=== PATIENT | female | born 1960 | race Caucasian/White ===

== ENCOUNTER → 2020-04-18 15:26 | Outpatient (BNVA) | payer OTHER, SELFPAY | PROVIDERS: PCP Family Medicine; Referring Provider Family Medicine; Visit Provider Hospitalist | DX: Z76.89 Persons encountering health services in other specified circumstances (principal) ==

== ENCOUNTER 2020-07-25 12:39 | Outpatient (REF) | payer OTHER, SELFPAY ==
[2020-07-25 14:40] LABS: MANUAL DIFF FLAG NO
[2020-07-25 14:46] LABS: Basophils Percent Auto 0.2 % (0-2); Eosinophils Percent Auto 0.6 % (0-4); Hemoglobin 14.5 g/dl (12.0-16.0); Imm Gran Abs Auto 0.03 X10*3/uL (0.00-0.03); Imm Gran Pct Auto 0.5 % (0.0-0.4); Lymphocytes Absolute Auto 1.7 X10*3/uL (1.2-4.9); Lymphocytes Percent Auto 26.4 % (20-40); Mean Corpuscular HGB Conc 34.5 g/dl (31.0-35.0); Mean Corpuscular Hemoglobin 33.9 pg (27.0-33.0); Mean Corpuscular Volume 98.1 fL (80-98); Monocytes Absolute Auto 0.5 X10*3/uL (0.1-1.2); Monocytes Percent Auto 8.1 % (2-11); Neutrophils Absolute Auto 4.1 X10*3/uL (2.0-8.3); Neutrophils Percent Auto 64.2 % (45-73); Platelet Count 178 X10*3/uL (160-400); Red Blood Count 4.28 X10*6/uL (4.20-5.50); Red Cell Distribution Width 12.8 % (11.0-16.0); White Blood Count 6.4 X10*3/uL (4.8-10.8)
[2020-07-25 15:15] LABS: Alanine Aminotransferase 91 U/L (0-31); Albumin Level 4.3 g/dL (3.5-5.0); Alkaline Phosphatase 85 U/L (39-117); Anion Gap 19 (12-20); Aspartate Amino Transferase 84 U/L (5-31); Bilirubin Total 1.8 mg/dL (0.0-1.0); Blood Urea Nitrogen 12 mg/dL (9-16); Calcium 8.9 mg/dL (8.4-10.2); Carbon Dioxide 23 mmol/L (22-29); Chloride 100 mmol/L (96-108); Estimated Glomerular Filt Rate 53; Glucose Random 90 mg/dL (60-115); Potassium 3.6 mmol/L (3.3-5.1); Sodium 138 mmol/L (135-145); Total Protein 6.7 g/dL (6.5-8.0)
[2020-07-25 15:25] LABS: Thyroid Stimulating Hormone 2.18 uIU/mL (0.32-4.0)
[2020-07-25 15:26] LABS: Erythrocyte Sedimentation Rate 5 MM/HR (0-20)
[2020-07-26 09:16] LABS: Lyme Abs Screen <0.90 index
== END 2020-07-25 12:40 | disposition home or self-care (01) ==
LOC: HO.10HDL 12:39
PROVIDERS: Visit Provider Family Medicine
DX: R53.83 Other fatigue (principal); R11.0 Nausea; L30.9 Dermatitis, unspecified
CPT/HCPCS: 36415; 80053; 84443; 85025; 85652; 86618

== ENCOUNTER 2020-08-29 09:40 | Outpatient (REF) | payer OTHER, SELFPAY ==
[2020-08-29 10:42] LABS: Appearance Urine HAZY; Color Urine AMBER; Glucose Urine UA NEG (NEG); Leukocyte Esterase Urine NEG (NEG); Nitrite Urine NEG (NEG); Specific Gravity - Urine >= 1.030 (1.005-1.025); Urine Blood NEG (NEG); Urine Ketones NEG (NEG); Urine Protein NEG (NEG-TRACE)
[2020-08-29 11:09] LABS: Alanine Aminotransferase 61 U/L (0-31); Albumin Level 4.2 g/dL (3.5-5.0); Alkaline Phosphatase 91 U/L (39-117); Aspartate Amino Transferase 84 U/L (5-31); Bilirubin Direct 0.5 mg/dL (0.0-0.5); Bilirubin Total 1.3 mg/dL (0.0-1.0); Total Protein 6.6 g/dL (6.5-8.0)
== END 2020-08-29 09:41 | disposition home or self-care (01) ==
LOC: HO.LAB 09:40
PROVIDERS: PCP Family Medicine; Visit Provider Family Medicine
DX: R31.9 Hematuria, unspecified (principal); R79.89 Other specified abnormal findings of blood chemistry
CPT/HCPCS: 36415; 80076; 81003

== ENCOUNTER 2020-12-12 09:50 | Outpatient (REF) | payer OTHER, SELFPAY ==
--- NOTE | ~2020-12-12 | FL_ITS ---
EXAMINATION: FL BARIUM SWALLOW CLINICAL INFORMATION: Dysphagia. History of bariatric surgery. COMPARISON: Previous upper GI August 2018 TECHNIQUE: Barium swallow examination is performed using fluoroscopic evaluation in addition to multiple fluoroscopic spot views. The patient is imaged both upright and prone and using both thick and thin sulfate along with effervescent granules. Patient was also administered a barium tablet. Fluoroscopy time: 1.1 minutes DAP: 13 Gycm2 Images: 40 FINDINGS: The swallowing mechanism is normal. No aspiration or penetration is seen. There is slight mass effect on the posterior cervical esophagus from vertebral body bony osteophyte. Esophageal motility is normal. The barium tablet passed freely into the stomach. There is mild gastroesophageal reflux. No hernia, mass or stricture is seen. FL/FL barium swallow IMPRESSION: Slight posterior impression on the posterior cervical esophagus from vertebral body bony osteophyte. Mild gastroesophageal reflux.
[2020-12-12 10:40] LABS: MANUAL DIFF FLAG NO
[2020-12-12 10:45] LABS: Basophils Percent Auto 0.5 % (0-2); Eosinophils Absolute Auto 0.1 X10*3/uL (0.0-0.4); Eosinophils Percent Auto 0.9 % (0-4); Hematocrit 42.4 % (37-47); Hemoglobin 14.2 g/dl (12.0-16.0); Imm Gran Abs Auto 0.02 X10*3/uL (0.00-0.03); Imm Gran Pct Auto 0.3 % (0.0-0.4); Lymphocytes Absolute Auto 1.6 X10*3/uL (1.2-4.9); Lymphocytes Percent Auto 23.6 % (20-40); Mean Corpuscular HGB Conc 33.5 g/dl (31.0-35.0); Mean Corpuscular Hemoglobin 33.9 pg (27.0-33.0); Mean Corpuscular Volume 101.2 fL (80-98); Mean Platelet Volume 10.4 fL (9.4-12.3); Monocytes Absolute Auto 0.7 X10*3/uL (0.1-1.2); Monocytes Percent Auto 10.9 % (2-11); Neutrophils Absolute Auto 4.2 X10*3/uL (2.0-8.3); Neutrophils Percent Auto 63.8 % (45-73); Platelet Count 267 X10*3/uL (160-400); Red Blood Count 4.19 X10*6/uL (4.20-5.50); Red Cell Distribution Width 12.3 % (11.0-16.0); White Blood Count 6.6 X10*3/uL (4.8-10.8)
[2020-12-12 11:11] LABS: Anion Gap 15 (12-20); Blood Urea Nitrogen 10 mg/dL (9-16); Calcium 9.4 mg/dL (8.4-10.2); Carbon Dioxide 23 mmol/L (22-29); Chloride 109 mmol/L (96-108); Estimated Glomerular Filt Rate > 60; Glucose Random 96 mg/dL (60-115); Potassium 4.6 mmol/L (3.3-5.1); Sodium 142 mmol/L (135-145)
== END 2020-12-12 09:51 | disposition home or self-care (01) ==
LOC: HO.XRAY 09:50
PROVIDERS: PCP Family Medicine; Visit Provider Family Medicine
DX: R10.13 Epigastric pain (principal); R11.2 Nausea with vomiting, unspecified; R53.1 Weakness; J64 Unspecified pneumoconiosis; R06.00 Dyspnea, unspecified
CPT/HCPCS: 36415; 74220; 80048; 85025

== ENCOUNTER 2021-01-05 07:56 | Outpatient (REF) | payer OTHER, SELFPAY ==
--- NOTE | 2021-01-05 15:04 | PFT_ITS ---
FLOWS: FEV1 109% of predicted at 2.73 L. FVC 101% of predicted at 3.24 L. FEV1 to FVC ratio of 0.84. No bronchodilator response. LUNG VOLUMES: Total lung capacity 97% of predicted at 4.76 L. Residual volume 80% of predicted at 1.55 L. Slow vital capacity 107% of predicted at 3.21 L. Expiratory reserve volume 94% of predicted at 0.79 L. Diffusion capacity is mildly decreased. In comparison to pulmonary function test performed in July of 2019, FEV1 has increased by 0.17 L; FVC, RV, and ERV have been without significant changes; total lung capacity has increased by 0.34 L; slow vital capacity has increased by 0.27 L; diffusion capacity has increased by 0.30 mL/minute per mmHg. IMPRESSION: No obstructive or restrictive ventilatory defect. No bronchodilator response. Isolated defect in diffusion capacity suggests underlying pulmonary, vascular or parenchymal disease. MD SNEHAL Dean/MODL / [id number] MTDD
== END 2021-01-05 07:57 | disposition home or self-care (01) ==
LOC: HO.RESP 07:56
PROVIDERS: PCP Family Medicine; Visit Provider Hospitalist
DX: J64 Unspecified pneumoconiosis (principal)
CPT/HCPCS: 94060; 94727; 94729

== ENCOUNTER → 2021-01-25 13:11 | Outpatient (BNVA) | payer OTHER, SELFPAY | PROVIDERS: PCP Family Medicine; Visit Provider Hospitalist | DX: J64 Unspecified pneumoconiosis (principal); J45.909 Unspecified asthma, uncomplicated ==

== ENCOUNTER 2021-02-09 08:27 | Day surgery (SDC) | payer OTHER, SELFPAY ==
[2021-02-01 16:49] VITALS: BMI 37.0
--- NOTE | 2021-02-08 08:43 | HO.ANESPROP2 ---
Documented by User: Nalini Castillo NP 02/08/21 08:45 HPI - Anesthesia Eval Consult details Narrative: 60yo F for Upper Endoscopy PMFSH Active Problems Active Problems: All Active Problems (Updated 02/01/21 @ 16:49 by Janine Franklin RN) Dyspnea (Acute) Pneumonitis (Acute) Sick building syndrome (Acute) Pneumoconiosis (Acute) Past Medical History Medical History (Updated 02/01/21 @ 16:49 by Janine Franklin RN) Anxiety Dyspnea Esophageal reflux History of tachycardia Pneumoconiosis Pneumonitis Sick building syndrome Surgical History Surgical History (Updated 02/01/21 @ 16:47 by Janine Franklin RN) History of bronchoscopy History of endometrial ablation History of sleeve gastrectomy Hx of section Hx of colonoscopy Hx of endoscopy Social History Social History (Updated 12/12/20 @ 14:14 by EULA Daniels) Are you a primary progressive care manager to a significant other at home: No Do you presently have visiting nurse or other home services: No Patient Tobacco Use Status: Never used Tobacco Are you DNR?: No Advance Directives: No Advance Directives Information Provided: No Advance Directives on File: No Recently lost weight without trying: No Eating poorly because of decreased appetite: No Nutrition Risks: No Nutritional Risk Patient : No Meds Allergies Allergy/AdvReac Type Severity Reaction Status Date / Time No Known Allergies Allergy Verified 02/01/21 16:38 Home Medications Medication Instructions Recorded Confirmed Last Taken Type albuterol sulfate 90 mcg/actuation 2 puff INHALATION Q6H PRN 04/18/20 02/01/21 Unknown History aerosol inhaler atenolol 25 mg tablet 25 mg PO BID 04/18/20 02/01/21 Unknown History esomeprazole magnesium 20 mg 20 mg PO DAILY 04/18/20 02/01/21 Unknown History capsule,delayed release (Nexium 24HR) trazodone 50 mg tablet 50 mg PO BEDTIME PRN 04/18/20 02/01/21 Unknown History hydroxyzine HCl 25 mg tablet 25 mg PO BID PRN 01/25/21 02/01/21 Unknown History famotidine 20 mg tablet 20 mg PO BEDTIME 02/01/21 02/01/21 Unknown History Exam Exam Date and Time: February 08, 2021 0843 Height,Weight and Vital Signs: Height 5 ft 4 in Weight 97.976 kg Pertinent Lab Results Pertinent Lab Results: Laboratory Tests 12/12/20 12/12/20 10:20 10:20 WBC 6.6 Hgb 14.2 Hct 42.4 Plt Count 267 D Sodium 142 Potassium 4.6 D Chloride 109 H Carbon Dioxide 23 BUN 10 Creatinine 0.84 Narrative Narrative: PFT 12/2020 IMPRESSION:? No obstructive or restrictive ventilatory defect.? No bronchodilator response. Isolated defect in diffusion capacity suggests underlying pulmonary, vascular or parenchymal disease. Assessment and Plan Assessment Anesthesia Assessment: Chart Reviewed Documented by User: Gerri Duong MD 02/09/21 09:34 PMF Past Medical History Medical History (Updated 02/01/21 @ 16:49 by Janine Franklin RN) Anxiety Dyspnea Esophageal reflux History of tachycardia Pneumoconiosis Pneumonitis Sick building syndrome Family History Family history of problems with anesthesia: No Surgical History Surgical History (Updated 02/01/21 @ 16:47 by Janine Franklin RN) History of bronchoscopy History of endometrial ablation History of sleeve gastrectomy Hx of section Hx of colonoscopy Hx of endoscopy History of Problems with Anesthesia: No Social History Social History (Updated 12/12/20 @ 14:14 by EULA Daniels) Are you a primary progressive care manager to a significant other at home: No Do you presently have visiting nurse or other home services: No Patient Tobacco Use Status: Never used Tobacco Are you DNR?: No Advance Directives: No Advance Directives Information Provided: No Advance Directives on File: No Recently lost weight without trying: No Eating poorly because of decreased appetite: No Nutrition Risks: No Nutritional Risk Patient : No Meds Allergies Allergy/AdvReac Type Severity Reaction Status Date / Time No Known Allergies Allergy Verified 02/01/21 16:38 Home Medications Medication Instructions Recorded Confirmed Last Taken Type albuterol sulfate 90 mcg/actuation 2 puff INHALATION Q6H PRN 04/18/20 02/01/21 Unknown History aerosol inhaler atenolol 25 mg tablet 25 mg PO BID 04/18/20 02/01/21 Unknown History esomeprazole magnesium 20 mg 20 mg PO DAILY 04/18/20 02/01/21 Unknown History capsule,delayed release (Nexium 24HR) trazodone 50 mg tablet 50 mg PO BEDTIME PRN 04/18/20 02/01/21 Unknown History hydroxyzine HCl 25 mg tablet 25 mg PO BID PRN 01/25/21 02/01/21 Unknown History famotidine 20 mg tablet 20 mg PO BEDTIME 02/01/21 02/01/21 Unknown History Exam Airway Mallampati Class: II TM Dist: >3cm Neck ROM: Full Heart: rrr Lungs: cta Assessment and Plan Assessment Anesthesia Assessment: Anesthesia Plan Discussed Final Anesthetic Review Family History of Problems with Anesthesia: No History of Problems with Anesthesia: No NPO: Yes ASA Class: III Final Preanesthetic Review: No Changes in Pt Med Stat, Meds/Allgs Chart Reviewed and Consent Obtained/Reviewed Patient Risk: Intermediate Procedure Risk: Intermediate Anesthetic Plan Anesthetic Plan: MAC: Disposition: Standard PACU
[2021-02-09 08:56] VITALS: BP 144/83; PULSE 98; RESP 18; TEMP 36.6; O2SAT 95
[2021-02-09] MEDS: Lactated Ringers 1,000 ML 100 ML IVCONT (09:03)
--- NOTE | 2021-02-09 09:31 | MHC.SHP ---
Pre-Procedural Eval Section A Date of Service: 02/09/21 The patient is an INPATIENT: No Changes since office visit: No Cold of Flu in the past 2 weeks, No New Medical Problems, No Changes in Medication and No Patient answered all questions The History & Physical has been completed within 30 days and I have reviewed it.: Yes Section B Chief Complaint: reflux disease Allergies: Allergies Allergy/AdvReac Type Severity Reaction Status Date / Time No Known Allergies Allergy Verified 02/01/21 16:38 Plan I have reviewed the history and physical and performed a pertinent physical examination on my patient. No changes have occurred unless specified.
[2021-02-09 10:05] VITALS: BP 149/78; PULSE 125; RESP 16; TEMP 36.4; O2SAT 99
--- NOTE | 2021-02-09 10:08 | P.BOP_ITS ---
Brief Operative Note Date of Service: 02/09/21 Pre-op diagnosis: GERD Post-op diagnosis: same (EG junction mass) Procedure: upper endoscopy Surgeon: Jos Nevarez Anesthesia: MAC Was an Aluminum Boat Inspector used for this Procedure?: No Estimated blood loss (mL): 5 Pathology: other (bxs antrum, egj mass, egj) Condition: stable Disposition: PACU
[2021-02-09 10:20] VITALS: BP 150/69; PULSE 111; RESP 17; TEMP 36.4; O2SAT 98
--- NOTE | 2021-02-14 09:15 | OP_ITS ---
SURGEON: Jos Nevarez MD INDICATIONS: Gastroesophageal reflux disease. PREOPERATIVE DIAGNOSIS: POSTOPERATIVE DIAGNOSIS: PROCEDURE PERFORMED: Upper endoscopy with biopsy. ESTIMATED BLOOD LOSS: COMPLICATIONS: ANESTHESIA: ASSISTANTS: SPECIMENS: MEDICATIONS: Monitored anesthesia care. DESCRIPTION OF PROCEDURE: History and physical was performed. The risks and benefits of the procedure were explained to the patient. Informed consent was obtained. The patient was placed in the left lateral decubitus position. The Olympus video gastroscope was introduced into the esophagus, stomach, and duodenum. Examination was performed. The scope was removed. She tolerated the procedure well and was taken to recovery area in stable condition. FINDINGS: Esophagus: The esophagus showed an irregular EG junction. There was no esophagitis. Biopsies were obtained from the EG junction. Stomach: In the proximal stomach, approximately 1-2 cm below the EG junction was a 2.5 cm polypoid lesion, which was ulcerated and friable. This prolapsed into the distal esophagus with retching and was biopsied. The base of the lesion was difficult to identify because of the patient's retching. There were multiple benign-appearing gastric polyps in the body of the stomach consistent with hyperplastic or fundic gland polyps measuring up to 10 mm in diameter. Antral biopsies were obtained. Duodenum: The bulb and second portion were normal. IMPRESSION: 1. Gastroesophageal reflux disease. 2. Polypoid esophageal mass lesion as above. RECOMMENDATIONS: 1. Follow up the biopsy results. 2. Continue proton pump inhibitor. MD MARK Ramos/CHENTEL / [id number]
== END 2021-02-09 10:50 | disposition home or self-care (01) ==
PROVIDERS: PCP Family Medicine; Visit Provider Internal Medicine Gastroenterology
PROC: 0DJ08ZZ Inspection of Upper Intestinal Tract, Via Natural or Artificial Opening Endoscopic (ICD-10-PCS; CPT 43235; principal; 2021-02-09 09:40)
DX: K21.9 Gastro-esophageal reflux disease without esophagitis (principal); K22.8 Other specified diseases of esophagus; K31.7 Polyp of stomach and duodenum; Z79.899 Other long term (current) drug therapy
CPT/HCPCS: 43239; 88305; 88342

== ENCOUNTER → 2021-05-08 06:59 | Day surgery (SDC) | payer OTHER, SELFPAY ==
[2021-05-01 20:00] VITALS: BMI 32.5
--- NOTE | 2021-05-07 08:56 | P.CONAN_ITS ---
HPI - Anesthesia Eval Consult details Narrative: Cx'd DOS d/t recent fall with facial trauma. Sent to ED 60yo F for Upper Endoscopy s/p EGD 01/2021 with MAC - Per Dr Nevarez, requires GA for this EGD REPLACED BY [facility] Active Problems Active Problems: All Active Problems (Updated 05/01/21 @ 19:57 by Becky Lovell, RADHA) Dyspnea (Acute) Pneumonitis (Acute) Sick building syndrome (Acute) Pneumoconiosis (Acute) Past Medical History Medical History Anxiety Dyspnea Esophageal reflux Heart palpitations History of tachycardia Pneumoconiosis Pneumonitis Sick building syndrome Sleep apnea Family History Family history of problems with anesthesia: No Surgical History Surgical History History of bronchoscopy History of endometrial ablation History of sleeve gastrectomy Hx of section Hx of colonoscopy Hx of endoscopy History of Problems with Anesthesia: No Social History Social History Are you a primary care program resident to a significant other at home: No Do you presently have visiting nurse or other home services: No Alcohol intake: current Alcohol intake frequency: a few times a week Patient Tobacco Use Status: Never used Tobacco Meds Allergies Allergy/AdvReac Type Severity Reaction Status Date / Time No Known Allergies Allergy Verified 05/15/21 10:22 Home Medications Medication Instructions Recorded Confirmed Last Taken Type albuterol sulfate 90 mcg/actuation 2 puff INHALATION Q6H PRN 04/18/20 05/01/21 Unknown History aerosol inhaler atenolol 25 mg tablet 25 mg PO BID 04/18/20 05/01/21 Unknown History esomeprazole magnesium 20 mg 20 mg PO DAILY 04/18/20 05/01/21 Unknown History capsule,delayed release (Nexium 24HR) trazodone 50 mg tablet 50 mg PO BEDTIME PRN 04/18/20 05/01/21 Unknown History famotidine 20 mg tablet 20 mg PO BEDTIME 02/01/21 05/01/21 Unknown History Exam Exam Date and Time: May 07, 2021 0856 Height,Weight and Vital Signs: Height 5 ft 4 in Weight 86.183 kg Narrative Narrative: PFT 12/2020 IMPRESSION:? No obstructive or restrictive ventilatory defect.? No bronchodilator response. Isolated defect in diffusion capacity suggests underlying pulmonary, vascular or parenchymal disease. Assessment and Plan Assessment Anesthesia Assessment: Chart Reviewed Final Anesthetic Review Family History of Problems with Anesthesia: No History of Problems with Anesthesia: No
== END ==
PROVIDERS: PCP Family Medicine; Visit Provider Internal Medicine Gastroenterology
DX: K31.9 Disease of stomach and duodenum, unspecified (principal); Z53.09 Procedure and treatment not carried out because of other contraindication; K21.9 Gastro-esophageal reflux disease without esophagitis; Z79.899 Other long term (current) drug therapy

== ENCOUNTER 2021-05-08 07:32 | Emergency (ER) | payer OTHER, SELFPAY ==
--- NOTE | ~2021-05-08 | CT_ITS ---
EXAMINATION: CT HEAD WITHOUT CONTRAST CT FACIAL BONES WITHOUT CONTRAST CT HEAD WITHOUT CONTRAST: CLINICAL INFORMATION: Fall. Pain. COMPARISON: Previous brain MRI October 2006 TECHNIQUE: Axial images through the brain without contrast. Sagittal and coronal reconstructions on the technologist workstation were performed. Patient dose: 745 mGy-cm. FINDINGS: There is no evidence of an extra-axial collection. There is no evidence of intra-axial or extra-axial hemorrhage. The ventricles and extra-axial CSF spaces are appropriate. Walker-white matter differentiation is normal. No mass or mass effect is seen. Review of bone windows is normal. There is soft tissue opacification of the right maxillary sinus. Paranasal sinuses, mastoid air cells and middle ears are otherwise clear. CT/CT facial bones wo con IMPRESSION: No acute intracranial findings. Soft tissue opacification of the right maxillary sinus. CT FACIAL BONES WITHOUT CONTRAST: CLINICAL INFORMATION: Trauma. Pain. COMPARISON: None. TECHNIQUE: Axial images through the facial bones without contrast. Sagittal and coronal reconstructions on the technologist workstation were performed. Patient dose: 327 mGy-cm. FINDINGS: There is air in the soft tissues and stranding of the fat along the anterior midline and right side of the mandible. No fracture or dislocation is seen. There is soft tissue opacification of the right maxillary sinus and right ostiomeatal complex. The remainder of the paranasal sinuses are clear. The mastoid air cells and middle ears are clear. The temporomandibular joints are normal. The orbits are normal. There may be a right nondisplaced nasal bone fracture. It does not appear acute. IMPRESSION: Air in the soft tissues and stranding of the fat along the anterior midline and right side of the mandible. No fracture or dislocation. Soft tissue opacification of the right maxillary sinus and ostiomeatal complex probably related to inflammatory changes as no acute facial bone fracture is seen.
--- NOTE | ~2021-05-08 | CT_ITS ---
EXAMINATION: CT CERVICAL SPINE WITHOUT CONTRAST CLINICAL INFORMATION: Fall. Pain. COMPARISON: None TECHNIQUE: Axial images through the cervical spine without contrast. Sagittal and coronal reconstructions on the technologist workstation were performed. This CT examination was performed using dose optimization techniques as appropriate, variously including the following: *Automated exposure control *Adjustment of mA and/or kV according to patient size (this includes techniques or standardized protocols for targeted exams where dose is matched to indication/reason for exam; i.e. extremities or head) *Use of iterative reconstruction technique DLP: 357 mGy-cm FINDINGS: Bone alignment is normal. No fracture or dislocation is seen. There is degenerative spondylosis at C5-6, C6-C7 and C7-T1. There is disc space narrowing at C6-C7. There is bilateral facet arthritis. There are degenerative changes at the C1-C2 articulation. Prevertebral soft tissues are normal. CT/CT cervical spine wo con IMPRESSION: Degenerative changes. No fracture or dislocation seen. Fleischner guidelines were followed.
--- NOTE | 2021-05-08 07:46 | ED_ITS ---
HPI - Fall General Chief Complaint: Fall Stated Complaint: FALL Time Seen by Provider: 05/08/21 07:45 Source: patient and family Mode of arrival: ambulatory Limitations: no limitations History of Present Illness MD complaint: fall Onset (ago): hour(s) (22) Fall from: standing and down stairs (#) (6) Fall witnessed: no Place fall occurred: home Loss of consciousness: none Prolonged down time: no Symptoms prior to fall: none Context: tripped/slipped Location of injury: head, face and mouth Severity: moderate Quality: aching Associated symptoms (after fall): other (noted she went to have a procedure today to remove mass from esophagus and they saw her face and couldn't do it. She is not on oral anticoagulation) Related Data Home Medications Medication Instructions Recorded Confirmed albuterol sulfate 90 mcg/actuation 2 puff INHALATION Q6H PRN 04/18/20 05/01/21 aerosol inhaler atenolol 25 mg tablet 25 mg PO BID 04/18/20 05/01/21 esomeprazole magnesium 20 mg 20 mg PO DAILY 04/18/20 05/01/21 capsule,delayed release (Nexium 24HR) trazodone 50 mg tablet 50 mg PO BEDTIME PRN 04/18/20 05/01/21 famotidine 20 mg tablet 20 mg PO BEDTIME 02/01/21 05/01/21 Previous Rx's Medication Instructions Recorded Wixela Inhub 250 mcg-50 mcg/dose 1 inh INHALATION BID 30 Days #60 01/26/21 powder for inhalation (fluticasone ea NS propion-salmeterol) Dulera 200 mcg-5 mcg/actuation HFA 2 puff INHALATION Q12H 30 Days #13 01/29/21 aerosol inhaler g NS (mometasone-formoterol) amoxicillin 875 mg-potassium 1 tab PO BID #14 tab 05/08/21 clavulanate 125 mg tablet (Augmentin) Allergies Allergy/AdvReac Type Severity Reaction Status Date / Time No Known Allergies Allergy Verified 05/08/21 07:54 Review of Systems Review of Systems: Constitutional : No Fever, No Chills ENT/Mouth : No Ear Pain, No Hoarseness, No sore throat, pos mouth pain Eyes: No Eye Pain, No Swelling, No Redness, No Foreign Body Cardiovascular : No Chest Pain, No SOB Respiratory : No Cough, No Dyspnea Gastrointestinal : No Nausea, No Vomiting, No Diarrhea, No abdominal Pain Genitourinary : No Dysuria, No Hematuria Musculoskeletal : no joint pain, No Myalgias, No Joint Swelling Skin : No Skin lacerations, No rash Neuro : No Weakness, No Numbness, No Loss of Consciousness, No Dizziness, No Headache, pos head injury Psych : No Anxiety/Panic, No Depression Heme/Lymph: no easy bruising, no Lymphadenopathy Endocrine : No Polyuria, No Polydipsia All other systems reviewed and are negative [facility] Past Medical History Source: old records reviewed Medical History Anxiety Dyspnea Esophageal reflux Heart palpitations History of tachycardia Pneumoconiosis Pneumonitis Sick building syndrome Sleep apnea Surgical History History of bronchoscopy History of endometrial ablation History of sleeve gastrectomy Hx of section Hx of colonoscopy Hx of endoscopy Social History Social History Are you a primary healthcare management consultant to a significant other at home: No Do you presently have visiting nurse or other home services: No Alcohol intake: current Alcohol intake frequency: a few times a week Patient Tobacco Use Status: Never used Tobacco Physical Exam Vital Signs: Vital Signs: Last Vital Signs Temp 98.9 F 05/08/21 07:54 Pulse 77 05/08/21 10:00 Resp 18 05/08/21 10:00 BP 160/66 H 05/08/21 10:00 Pulse Ox 100 05/08/21 10:00 BMI result Body Mass Index 33.5 Appearance: Alert. Oriented X3. No acute distress. Eyes: Pupils equal, round and reactive to light. ENT: Contusions noted on both periorbital areas, forehead, bridge of nose, has hematoma between gingiva and lower lip but able to fully open jaw, no valadez sign, no nasal septal hematoma Neck: Normal inspection. Neck supple. CVS: Normal heart rate and rhythm. Pulses normal. Chest: no ttp Respiratory: No respiratory distress. Breath sounds normal. Abdomen: Soft and nontender. Back: no ttp Skin: Skin warm and dry. Normal skin color. Normal skin turgor. Extremities: No lower extremity edema. superficial abrasions and bruising to bilateral patellas but full ROM Neuro: Oriented X 3. No motor deficit. No sensory deficit. Course Course Course Narrative: repeat calls to radiology for delayed reads prelim from structural iron erector no finals done - patient and spouse want to leave no ICH, no cervical spine fracture, no facial bone fracture there is soft tissue injury to L maxillary and anterior mandible area but no fractures MDM - Fall MDM Narrative Medical decision making narrative: 60 yo female here not on oral anti coagulation comes in after carrying a crock pot up her stairs then reports tripping and fall backwards down 6 steps somehow she has isolated anterior head and facial trauma without LOC, no other injuries reported - she is GCS 15. At this time CT head/cspine/facial bones ordered. She only came today about 1 day later because she showed up to short stay surgery for pre -op and they refused her for surgery given the recent head trauma. Lab Data Labs: Lab Results 05/08/21 Range/Units 08:02 COVID-19 (RERE) Negative (Negative) COVID-19 Clin Com See Note Discharge Plan Discharge Clinical Impression: Hematoma, Opacification of right maxillary sinus Head injury Qualifiers: Encounter type: initial encounter Qualified Code(s): S09.90XA - Unspecified injury of head, initial encounter Contusion of face Qualifiers: Encounter type: initial encounter Qualified Code(s): S00.83XA - Contusion of other part of head, initial encounter Patient Disposition: Home, Self-Care Instructions: Head Injury (ED), Contusion in Adults (ED), Hematoma (ED), Facial Contusion (ED) Additional Instructions: return to ED for any worsening symptoms or concerns no nose blowing for 7 days you left prior to final reads no intracranial hemorrhage, no facial bone fractures, no cervical spine fractures found soft tissue injuries found Prescriptions: New amoxicillin-pot clavulanate [Augmentin] 875-125 mg tablet 1 tab PO BID Qty: 14 RF: 0 No Action fluticasone propion-salmeterol [Wixela Inhub] 250-50 mcg/dose blister with device 1 inh inhalation BID 30 Days Qty: 60 RF: 11 Dulera 200-5 mcg/actuation HFA aerosol inhaler 2 puff inhalation Q12H 30 Days Qty: 13 RF: 11 famotidine 20 mg Tablet 20 mg PO BEDTIME RF: 0 albuterol sulfate 90 mcg/actuation HFA aerosol inhaler 2 puff inhalation Q6H PRN (Reason: Wheezing) RF: 0 trazodone 50 mg tablet 50 mg PO BEDTIME PRN (Reason: Sleep) RF: 0 atenolol 25 mg tablet 25 mg PO BID RF: 0 esomeprazole magnesium [Nexium 24HR] 20 mg capsule,delayed release(DR/EC) 20 mg PO DAILY RF: 0 Interventions: ED Discharge Assessment Last Done: 05/08/21 11:22 Discharge Date/Time: 05/08/21 11:24
[2021-05-08 07:54] VITALS: BP 135/77; PULSE 70; RESP 18; TEMP 37.2; O2SAT 97; BMI 33.5
[2021-05-08 08:26] LABS: COVID-19 Test Negative (Negative); IDNOW Serial# 9DD0AD1C
--- NOTE | 2021-05-08 09:38 | PC.NURSE ---
pt offered pain medication and ice. declines.
[2021-05-08 10:00] VITALS: BP 160/66; PULSE 77; RESP 18; O2SAT 100
--- NOTE | 2021-05-08 11:20 | PC.NURSE ---
CONTINUE TO AWAIT CT OFFICIAL READ PT NOT WANTING TO STAY. CONTACTED RADIOLOGY ENVIRONMENTAL SERVICES MANAGER DUE TO LONG WAIT TIMES FOR REPORT PRELIM READ GIVEN TO DR MORGAN. PT AWAKE, ALERT AND ORIENTED X 3. SKIN WARM AND DRY. RESP UNLABORED. DENIES N/V. NO ACUTE DISTRESS NOTED.
== END 2021-05-08 11:24 | disposition home or self-care (01) ==
PROVIDERS: Emergency Provider Emergency Medicine; PCP Family Medicine
DX: S09.90XA Unspecified injury of head, initial encounter (principal); S00.83XA Contusion of other part of head, initial encounter; S00.93XA Contusion of unspecified part of head, initial encounter; G44.309 Post-traumatic headache, unspecified, not intractable; W10.9XXA Fall (on) (from) unspecified stairs and steps, initial encounter; Y93.9 Activity, unspecified; Y92.9 Unspecified place or not applicable; Y99.9 Unspecified external cause status; Z20.822 Contact with and (suspected) exposure to COVID-19; Z79.899 Other long term (current) drug therapy
CPT/HCPCS: 36415; 70450; 70486; 72125; 87635; 99284

== ENCOUNTER 2021-05-15 13:27 | Outpatient (REF) | payer OTHER, SELFPAY ==
--- NOTE | ~2021-05-15 | XR_ITS ---
EXAMINATION: XR KNEE, LEFT CLINICAL INFORMATION: Fall from stairs. COMPARISON: None TECHNIQUE: Four views of the left knee. FINDINGS: The tricompartment joint space is maintained normal. There is mild periarticular spurring medial compartment. There is no visible acute fracture, dislocation or bony erosive changes. The soft tissues are normal. XR/XR knee LT 4V IMPRESSION: Degenerative spurring medial compartment. No visible acute fracture or dislocation seen.
--- NOTE | ~2021-05-15 | XR_ITS ---
EXAMINATION: XR KNEE, RIGHT CLINICAL INFORMATION: Pain right knee COMPARISON: None TECHNIQUE: Four views of the right knee. FINDINGS: There is mild reduction in medial compartment joint space. There is mild periarticular spurring lateral compartment. There are no loose bodies, joint effusion or bony erosive changes. XR/XR knee RT 4V IMPRESSION: Mild degenerative changes medial compartment. No acute fracture or dislocation seen.
== END 2021-05-15 13:28 | disposition home or self-care (01) ==
LOC: HO.XRAY 13:27
PROVIDERS: PCP Family Medicine; Visit Provider Hospitalist
DX: M25.561 Pain in right knee (principal); M25.562 Pain in left knee; W10.8XXD Fall (on) (from) other stairs and steps, subsequent encounter
CPT/HCPCS: 73564

== ENCOUNTER 2021-06-29 08:26 | Day surgery (SDC) | payer OTHER, SELFPAY ==
--- NOTE | 2021-06-28 09:51 | P.CONAN_ITS ---
Documented by User: Nalini Castillo NP 06/28/21 09:53 HPI - Anesthesia Eval Consult details Narrative: 60yo F for Upper Endoscopy s/p 01/2021 EGD with MAC Per GI, needs GA d/t location of polyp PMFSH Active Problems Active Problems: All Active Problems (Updated 05/15/21 @ 10:38 by Sallie Wilkinson NP) Acute bilateral knee pain (Acute) Fall (on) (from) other stairs and steps, subsequent encounter (Acute) Dyspnea (Acute) Pneumonitis (Acute) Sick building syndrome (Acute) Pneumoconiosis (Acute) Past Medical History Medical History Anxiety Dyspnea Esophageal reflux Heart palpitations History of tachycardia Pneumoconiosis Pneumonitis Sick building syndrome Sleep apnea Family History Family history of problems with anesthesia: No Surgical History Surgical History History of bronchoscopy History of endometrial ablation History of sleeve gastrectomy Hx of section Hx of colonoscopy Hx of endoscopy History of Problems with Anesthesia: No Social History Social History Are you a primary home care administrator to a significant other at home: No Do you presently have visiting nurse or other home services: No Alcohol intake: current Alcohol intake frequency: a few times a week Patient Tobacco Use Status: Never used Tobacco Use of substances other than those prescribed or required for medical reasons: No Are you DNR?: No Advance Directives: No Advance Directives Information Provided: Yes Recently lost weight without trying: No Nutrition Risks: No Nutritional Risk Meds Allergies Allergy/AdvReac Type Severity Reaction Status Date / Time No Known Allergies Allergy Verified 05/15/21 10:22 Home Medications Medication Instructions Recorded Confirmed Last Taken Type albuterol sulfate 2 puff 04/18/20 05/01/21 Unknown History 90 mcg/actuation INHALATION Q6H PRN aerosol inhaler atenolol 25 mg 25 mg PO BID 04/18/20 05/01/21 06/29/21 History tablet esomeprazole 20 mg PO DAILY 04/18/20 05/01/21 Unknown History magnesium 20 mg capsule,delayed release (Nexium 24HR) trazodone 50 mg 50 mg PO BEDTIME 04/18/20 05/01/21 Unknown History tablet PRN famotidine 20 mg 20 mg PO BEDTIME 02/01/21 05/01/21 Unknown History tablet pantoprazole 40 mg PO 06/29/21 06/29/21 06/29/21 History mg tablet,delayed release Exam Exam Date and Time: June 28, 202162 Pertinent Lab Results Pertinent Lab Results: Laboratory Tests 12/12/20 12/12/20 10:20 10:20 WBC 6.6 Hgb 14.2 Hct 42.4 Plt Count 267 D Sodium 142 Potassium 4.6 D Chloride 109 H Carbon Dioxide 23 BUN 10 Creatinine 0.84 Assessment and Plan Assessment Anesthesia Assessment: Chart Reviewed Final Anesthetic Review Family History of Problems with Anesthesia: No History of Problems with Anesthesia: No Documented by User: Shiv Santos MD 06/29/21 09:19 [facility] Past Medical History Medical History Anxiety Dyspnea Esophageal reflux Heart palpitations History of tachycardia Pneumoconiosis Pneumonitis Sick building syndrome Sleep apnea Surgical History Surgical History History of bronchoscopy History of endometrial ablation History of sleeve gastrectomy Hx of section Hx of colonoscopy Hx of endoscopy Social History Social History Are you a primary home care administrator to a significant other at home: No Do you presently have visiting nurse or other home services: No Alcohol intake: current Alcohol intake frequency: a few times a week Patient Tobacco Use Status: Never used Tobacco Use of substances other than those prescribed or required for medical reasons: No Are you DNR?: No Advance Directives: No Advance Directives Information Provided: Yes Recently lost weight without trying: No Nutrition Risks: No Nutritional Risk Meds Allergies Allergy/AdvReac Type Severity Reaction Status Date / Time No Known Allergies Allergy Verified 05/15/21 10:22 Home Medications Medication Instructions Recorded Confirmed Last Taken Type albuterol sulfate 2 puff 04/18/20 05/01/21 Unknown History 90 mcg/actuation INHALATION Q6H PRN aerosol inhaler atenolol 25 mg 25 mg PO BID 04/18/20 05/01/21 06/29/21 History tablet esomeprazole 20 mg PO DAILY 04/18/20 05/01/21 Unknown History magnesium 20 mg capsule,delayed release (Nexium 24HR) trazodone 50 mg 50 mg PO BEDTIME 04/18/20 05/01/21 Unknown History tablet PRN famotidine 20 mg 20 mg PO BEDTIME 02/01/21 05/01/21 Unknown History tablet pantoprazole 40 mg PO 06/29/21 06/29/21 06/29/21 History mg tablet,delayed release Exam Airway Mallampati Class: II TM Dist: >3cm Neck ROM: Full Assessment and Plan Assessment Anesthesia Assessment: Anesthesia Plan Discussed Final Anesthetic Review NPO: Yes ASA Class: II Final Preanesthetic Review: No Changes in Pt Med Stat, Meds/Allgs Chart Reviewed, Consent Obtained/Reviewed and Anes Risks/Benef Reviewed Patient Risk: Low Procedure Risk: Intermediate Anesthetic Plan Anesthetic Plan: GA Disposition: Standard PACU
[2021-06-29 08:44] VITALS: BMI 32.5
[2021-06-29 08:48] VITALS: BP 162/91; PULSE 100; RESP 16; TEMP 36.6; O2SAT 96
[2021-06-29] MEDS: Lactated Ringers 1,000 ML 100 ML IVCONT (09:03)
--- NOTE | 2021-06-29 09:51 | MHC.SHP ---
Pre-Procedural Eval Section A Date of Service: 06/29/21 Section B Chief Complaint: polyp of stomach and duodenum Details of Present Illness: See H&P and addenda Relevant Family History (Specify if Yes): No Relevant Social History: None Present Medications: see Short Stay Collaborative assessment Medical History: No relevant PMH History of Previous Operations: No relevant previous surgery Allergies: Allergies Allergy/AdvReac Type Severity Reaction Status Date / Time No Known Allergies Allergy Verified 05/15/21 10:22 Review of Systems Sugical H&P ROS: Negative: Constitution, Cardiovascular, Respiratory, Neurological, Psychiatric, Hem-Onc, Allergic/Immunologic, Gastrointestinal, Genitourinary, Musculoskeletal, Integumentary, Endocrine and Eyes/Ears/Nose/Throat Exam Surgical H&P Exam: Normal: HEENT, Normal: Heart, Normal: Lungs, Normal: Extremities, Normal: Abdomen, Normal: Skin and Normal: Neurological Plan Diagnosis/Plan: Unchanged I have reviewed the history and physical and performed a pertinent physical examination on my patient. No changes have occurred unless specified.
[2021-06-29 10:53] VITALS: BP 175/86; PULSE 114; RESP 20; TEMP 36.4; O2SAT 100
[2021-06-29] MEDS: ondansetron HCL 4 MG/2 ML VIAL IVPUSH (10:57)
--- NOTE | 2021-06-29 10:57 | PM.OP ---
Brief Operative Note Date of Service: 06/29/21 Pre-op diagnosis: gastric polyp Post-op diagnosis: same Procedure: egd Surgeon: Jos Nevarez Was an Director Of Marketing And Promotions used for this Procedure?: No Estimated blood loss (mL): 5 Pathology: other (gastric polyp, bxs random gastric polyps, antral biopsies) Condition: stable Disposition: PACU
[2021-06-29 10:58] VITALS: BP 152/77; PULSE 109; RESP 16; O2SAT 100
[2021-06-29 11:03] VITALS: BP 179/83; PULSE 104; RESP 17; O2SAT 100
[2021-06-29 11:08] VITALS: BP 161/76; PULSE 100; RESP 18; O2SAT 100
[2021-06-29 11:21] VITALS: BP 167/83; PULSE 99; RESP 16; TEMP 36.4; O2SAT 97
--- NOTE | 2021-06-29 21:02 | OP_ITS ---
SURGEON: Jos Nevarez MD PREOPERATIVE DIAGNOSIS: POSTOPERATIVE DIAGNOSIS: PROCEDURE PERFORMED: Upper endoscopy with snare polypectomy, biopsy, and endoscopic clip placement. ESTIMATED BLOOD LOSS: COMPLICATIONS: ANESTHESIA: Medications, general anesthesia. ASSISTANTS: SPECIMENS: DESCRIPTION OF PROCEDURE: History and physical performed. The risks and benefits of the procedure were explained to the patient. Informed consent was obtained. The patient was placed in the left lateral decubitus position. The Olympus video gastroscope was introduced into the esophagus, stomach, and duodenum. Examination was performed. The scope was removed. She tolerated the procedure well and was taken to recovery room in stable condition. FINDINGS: Esophagus: The esophagus was normal. There was a sliding hiatal hernia. Stomach: Stomach showed the previously identified large gastric polyp located approximately 1 to 2 cm below the EG junction, measuring approximately 10 to 15 mm. The polyp was friable. There were multiple other less than 10 mm gastric polyps that appeared benign in the body and fundus. Duodenum: The bulb and second portion were normal. The gastric polyp that had been identified and biopsied at last endoscopy was removed with a snare and recovered via suction. The base of the polyp was cauterized, and a single endoscopic clip was placed. There was no bleeding at the termination of the procedure. Several other benign-appearing gastric polyps were biopsied, and antral biopsies were also obtained. IMPRESSION: Gastric polyps. RECOMMENDATIONS: Follow up the biopsy results. MD MARK Ramos/CHET / [id number] MTDD
== END 2021-06-29 11:39 | disposition home or self-care (01) ==
PROVIDERS: PCP Family Medicine; Visit Provider Internal Medicine Gastroenterology
PROC: 0DJ08ZZ Inspection of Upper Intestinal Tract, Via Natural or Artificial Opening Endoscopic (ICD-10-PCS; CPT 43235; principal; 2021-06-29 09:50)
DX: K31.7 Polyp of stomach and duodenum (principal); K44.9 Diaphragmatic hernia without obstruction or gangrene; K21.9 Gastro-esophageal reflux disease without esophagitis; K29.70 Gastritis, unspecified, without bleeding; R00.0 Tachycardia, unspecified; G47.30 Sleep apnea, unspecified; Z77.120 Contact with and (suspected) exposure to mold (toxic); Z79.51 Long term (current) use of inhaled steroids; Z79.899 Other long term (current) drug therapy
CPT/HCPCS: 43251; 43239; 88305; 88342; J1100; J2405; J2550; J3010

== ENCOUNTER → 2021-09-25 12:58 | Outpatient (BNVA) | payer OTHER, SELFPAY | PROVIDERS: PCP Family Medicine; Visit Provider Hospitalist | DX: J64 Unspecified pneumoconiosis (principal); J45.909 Unspecified asthma, uncomplicated ==

== ENCOUNTER 2022-04-10 12:25 | Day surgery (SDC) | payer OTHER, SELFPAY ==
[2022-04-09 09:46] VITALS: BMI 35.5
--- NOTE | 2022-04-09 12:47 | HO.ANESPROP2 ---
Documented by User: Nalini Castillo NP 04/09/22 12:48 HPI - Anesthesia Eval Consult details Narrative: 61yo F for Colonoscopy s/p EGD 06/2021 with GETA (required GA d/t location of polyp) PMFSH Active Problems Active Problems: All Active Problems (Updated 09/25/21 @ 21:13 by Chava Roman MD) Pre-op chest exam (Acute) Acute bilateral knee pain (Acute) Fall (on) (from) other stairs and steps, subsequent encounter (Acute) Dyspnea (Acute) Pneumonitis (Acute) Sick building syndrome (Acute) Pneumoconiosis (Acute) Past Medical History Medical History Anxiety Dyspnea Esophageal reflux Heart palpitations History of tachycardia Hx of pancreatitis Pneumoconiosis Pneumonitis Sick building syndrome Sleep apnea Family History Family history of problems with anesthesia: No Surgical History Surgical History (Updated 04/10/22 @ 13:02 by Vivi Lock, RN) History of bronchoscopy History of endometrial ablation History of sleeve gastrectomy Hx of section Hx of cholecystectomy Hx of colonoscopy Hx of endoscopy History of Problems with Anesthesia: No Social History Social History Are you a primary personal care service provider to a significant other at home: No Do you presently have visiting nurse or other home services: No Alcohol intake: current Alcohol intake frequency: a few times a week Patient Tobacco Use Status: Never used Tobacco Use of substances other than those prescribed or required for medical reasons: No Are you DNR?: No Advance Directives: No Advance Directives Information Provided: Yes Meds Allergies Allergy/AdvReac Type Severity Reaction Status Date / Time No Known Allergies Allergy Verified 04/10/22 13:13 Home Medications Medication Instructions Recorded Confirmed Last Taken Type atenolol 25 mg tablet 25 mg PO BID 04/18/20 05/01/21 04/10/22 07:30 History trazodone 50 mg tablet 50 mg PO BEDTIME PRN Sleep 04/18/20 05/01/21 Unknown History pantoprazole 40 mg tablet,delayed 40 mg PO 06/29/21 06/29/21 06/29/21 History release lorazepam 0.5 mg tablet 0.5 mg PO Q8H PRN Anxiety 09/25/21 Unknown History sertraline 50 mg tablet 50 mg PO QAM 09/25/21 Unknown History Exam Exam Date and Time: April 09, 2022 1247 Height,Weight and Vital Signs: Height 5 ft 4 in Weight 93.894 kg Assessment and Plan Assessment Anesthesia Assessment: Chart Reviewed Final Anesthetic Review Family History of Problems with Anesthesia: No History of Problems with Anesthesia: No Documented by User: Ayaz Yo MD 04/10/22 13:44 PMFSH Past Medical History Medical History Anxiety Dyspnea Esophageal reflux Heart palpitations History of tachycardia Hx of pancreatitis Pneumoconiosis Pneumonitis Sick building syndrome Sleep apnea Patient : No Surgical History Surgical History (Updated 04/10/22 @ 13:02 by Vivi Lock RN) History of bronchoscopy History of endometrial ablation History of sleeve gastrectomy Hx of section Hx of cholecystectomy Hx of colonoscopy Hx of endoscopy Social History Social History Are you a primary personal care service provider to a significant other at home: No Do you presently have visiting nurse or other home services: No Alcohol intake: current Alcohol intake frequency: a few times a week Patient Tobacco Use Status: Never used Tobacco Use of substances other than those prescribed or required for medical reasons: No Are you DNR?: No Advance Directives: No Advance Directives Information Provided: Yes Meds Allergies Allergy/AdvReac Type Severity Reaction Status Date / Time No Known Allergies Allergy Verified 04/10/22 13:13 Home Medications Medication Instructions Recorded Confirmed Last Taken Type atenolol 25 mg tablet 25 mg PO BID 04/18/20 05/01/21 04/10/22 07:30 History trazodone 50 mg tablet 50 mg PO BEDTIME PRN Sleep 04/18/20 05/01/21 Unknown History pantoprazole 40 mg tablet,delayed 40 mg PO 06/29/21 06/29/21 06/29/21 History release lorazepam 0.5 mg tablet 0.5 mg PO Q8H PRN Anxiety 09/25/21 Unknown History sertraline 50 mg tablet 50 mg PO QAM 09/25/21 Unknown History Exam Airway Mallampati Class: II TM Dist: >3cm Neck ROM: Full Loose/Missing/Broken Teeth: No Heart: rrr Lungs: clear Assessment and Plan Final Anesthetic Review ASA Class: II Final Preanesthetic Review: No Changes in Pt Med Stat, Meds/Allgs Chart Reviewed, Consent Obtained/Reviewed and Anes Risks/Benef Reviewed Patient Risk: Intermediate Anesthetic Plan Anesthetic Plan: MAC: Disposition: Standard PACU
[2022-04-10 13:14] VITALS: BP 135/63; PULSE 62; RESP 17; TEMP 36.9; O2SAT 98
[2022-04-10] MEDS: Lactated Ringers 1,000 ML 100 ML IVCONT (13:20)
--- NOTE | 2022-04-10 13:39 | MHC.SHP ---
Pre-Procedural Eval Section A Date of Service: 04/10/22 The patient is an INPATIENT: No Changes since office visit: No Cold of Flu in the past 2 weeks, No New Medical Problems, No Changes in Medication and No Patient answered all questions The History & Physical has been completed within 30 days and I have reviewed it.: Yes Section B Chief Complaint: screening Allergies: Allergies Allergy/AdvReac Type Severity Reaction Status Date / Time No Known Allergies Allergy Verified 04/10/22 13:13 Plan I have reviewed the history and physical and performed a pertinent physical examination on my patient. No changes have occurred unless specified.
--- NOTE | 2022-04-10 14:18 | PM.OP ---
Brief Operative Note Date of Service: 04/10/22 Pre-op diagnosis: screening Post-op diagnosis: same Surgeon: Jos Nevarez Anesthesia: MAC Was an Deputy Program Manager used for this Procedure?: No Estimated blood loss (mL): 2 Pathology: other Condition: stable Disposition: PACU
[2022-04-10 14:23] VITALS: BP 107/58; PULSE 66; RESP 20; TEMP 36.6; O2SAT 99
[2022-04-10 14:41] VITALS: BP 131/67; PULSE 69; RESP 18; TEMP 36.1; O2SAT 98
--- NOTE | 2022-04-11 05:15 | OP_ITS ---
SURGEON: Jos Nevarez MD INDICATIONS: C difficile colitis and colon cancer screening. PREOPERATIVE DIAGNOSIS: POSTOPERATIVE DIAGNOSIS: PROCEDURE PERFORMED: Colonoscopy to the terminal ileum with biopsy. ESTIMATED BLOOD LOSS: COMPLICATIONS: ANESTHESIA: Monitored anesthesia care. ASSISTANTS: SPECIMENS: DESCRIPTION OF PROCEDURE: Date of service is 04/10/22. A history and physical performed. The risks and benefits of the procedure were explained to the patient. Informed consent was obtained. The patient was placed in left lateral decubitus position. A digital rectal exam was performed and was found to be normal. The Olympus pediatric video colonoscope was introduced into the rectum and advanced to the cecum without difficulty. The cecum was identified by transillumination, palpation, and identification of ileocecal valve. Examination was performed. The scope was removed. She tolerated the procedure well and was transferred to recovery area in stable condition. FINDINGS: The terminal ileum was examined and appeared normal. The visualized colonic mucosa was normal. There was liquid stool covering the mucosa in a thin coating from the cecum to about the mid transverse colon. This was washed and suctioned as best possible, but did limit the sensitivity examination for detection of small polyps. There was scattered diverticulosis throughout the colon. No colitis was seen. Random sigmoid biopsies were obtained. A single less than 5mm polyp was identified and removed with a biopsy forceps at 30 cm.. No other polyps were identified. Retroflexed examination showed some internal hemorrhoids and hypertrophic anal papillae. IMPRESSION: Colon polyp. RECOMMENDATION: Follow up the biopsy results. MD MARK Ramos/CHET / [id number] MTDD
== END 2022-04-10 14:57 | disposition home or self-care (01) ==
PROVIDERS: PCP Family Medicine; Visit Provider Internal Medicine Gastroenterology
PROC: 0DJD8ZZ Inspection of Lower Intestinal Tract, Via Natural or Artificial Opening Endoscopic (ICD-10-PCS; CPT 45378; principal; 2022-04-10 13:40)
DX: Z12.11 Encounter for screening for malignant neoplasm of colon (principal); K63.5 Polyp of colon; K57.30 Diverticulosis of large intestine without perforation or abscess without bleeding; K64.8 Other hemorrhoids; K62.89 Other specified diseases of anus and rectum; K21.9 Gastro-esophageal reflux disease without esophagitis; K31.7 Polyp of stomach and duodenum; Z87.19 Personal history of other diseases of the digestive system; Z86.19 Personal history of other infectious and parasitic diseases; Z79.899 Other long term (current) drug therapy; Z90.49 Acquired absence of other specified parts of digestive tract; Z98.84 Bariatric surgery status; Z77.120 Contact with and (suspected) exposure to mold (toxic)
CPT/HCPCS: 45380; 88305

== ENCOUNTER 2023-03-01 09:53 | Outpatient (REF) | payer OTHER, SELFPAY ==
[2023-03-01 10:49] LABS: Leukocytes Stool Qualitative NEGATIVE (NEGATIVE)
[2023-03-01 11:55] LABS: Campylobacter Not Detected (Not Detect.); Cryptosporidium Not Detected (Not Detect.); Cyclospora cayetanensis Not Detected (Not Detect.); E. coli EAEC Not Detected (Not Detect.); E. coli EPEC Not Detected (Not Detect.); E. coli ETEC Not Detected (Not Detect.); E. coli STEC Not Detected (Not Detect.); Entamoeba histolytica Not Detected (Not Detect.); Plesiomonas shigelloides Not Detected (Not Detect.); Salmonella Not Detected (Not Detect.); Shigella sp./EIEC Not Detected (Not Detect.); Vibrio Not Detected (Not Detect.); Vibrio Cholerae Not Detected (Not Detect.); Yersinia enterocolitica Not Detected (Not Detect.)
[2023-03-01 11:56] LABS: Adenovirus F 40/41 Not Detected (Not Detect.); Astrovirus Not Detected (Not Detect.); Giardia lamblia Not Detected (Not Detect.); Norovirus GI/GII Not Detected (Not Detect.); Rotavirus A Not Detected (Not Detect.); Sapovirus Not Detected (Not Detect.)
== END 2023-03-01 09:54 | disposition home or self-care (01) ==
LOC: HO.LNP 09:53
PROVIDERS: Visit Provider Internal Medicine Gastroenterology
DX: R19.7 Diarrhea, unspecified (principal)
CPT/HCPCS: 87177; 87209; 87507; 89055

== ENCOUNTER 2023-03-26 15:10 | Outpatient (REF) | payer OTHER, SELFPAY ==
[2023-03-26 17:10] LABS: Leukocytes Stool Qualitative NEGATIVE (NEGATIVE)
== END 2023-03-26 15:11 | disposition home or self-care (01) ==
LOC: HO.LNP 15:10
PROVIDERS: Visit Provider Internal Medicine Gastroenterology
DX: R19.7 Diarrhea, unspecified (principal)
CPT/HCPCS: 87177; 87209; 87329; 89055